=== PATIENT | female | born 1980 | race Caucasian/White ===

== ENCOUNTER → 2019-11-05 08:47 | Outpatient (BNVA) | payer OTHER, SELFPAY | PROVIDERS: Visit Provider Nurse Practitioner Women's Health | DX: Z01.89 Encounter for other specified special examinations (principal) | CPT/HCPCS: 84315 ==

== ENCOUNTER → 2019-11-29 13:03 | Outpatient (BNVA) | payer OTHER, SELFPAY | PROVIDERS: Visit Provider Obstetrics & Gynecology | DX: O09.521 Supervision of elderly multigravida, first trimester (principal) | CPT/HCPCS: 80053; 80307; 84315; 85027; 86592; 86762; 86803; 86850; 86900; 87340; 87806 ==

== ENCOUNTER → 2019-12-10 10:41 | Outpatient (BNVA) | payer OTHER, SELFPAY | PROVIDERS: Visit Provider Obstetrics & Gynecology Female Pelvic Medicine and Reconstructive Surgery | DX: Z34.90 Encounter for supervision of normal pregnancy, unspecified, unspecified trimester (principal); O09.892 Supervision of other high risk pregnancies, second trimester; O09.891 Supervision of other high risk pregnancies, first trimester; O09.521 Supervision of elderly multigravida, first trimester; O99.331 Smoking (tobacco) complicating pregnancy, first trimester; O34.531 Maternal care for retroversion of gravid uterus, first trimester | CPT/HCPCS: 84315; 87491; 87591 ==

== ENCOUNTER → 2020-02-11 12:52 | Outpatient (BNVA) | payer OTHER, SELFPAY | PROVIDERS: Visit Provider Obstetrics & Gynecology | DX: Z36.89 Encounter for other specified antenatal screening (principal) | CPT/HCPCS: 76805 ==

== ENCOUNTER → 2020-03-27 13:01 | Outpatient (BNVA) | payer OTHER, SELFPAY | PROVIDERS: Visit Provider Obstetrics & Gynecology | DX: R10.9 Unspecified abdominal pain (principal); R35.0 Frequency of micturition | CPT/HCPCS: 81000 ==

== ENCOUNTER → 2020-04-03 12:26 | Outpatient (BNVA) | payer OTHER, SELFPAY | PROVIDERS: Visit Provider Nurse Practitioner Women's Health | DX: O09.522 Supervision of elderly multigravida, second trimester (principal); Z3A.00 Weeks of gestation of pregnancy not specified | CPT/HCPCS: 82950; 84315; 85027 ==

== ENCOUNTER → 2020-05-29 08:25 | Outpatient (BNVA) | payer OTHER, SELFPAY | PROVIDERS: Visit Provider Obstetrics & Gynecology | DX: O09.523 Supervision of elderly multigravida, third trimester (principal) | CPT/HCPCS: 84315; 87081 ==

== ENCOUNTER 2020-06-06 07:15 | Outpatient (CLI) | payer OTHER, SELFPAY ==
[2020-06-06 07:47] VITALS: BP 111/64; PULSE 71
[2020-06-06 08:11] VITALS: BMI 23.8
[2020-06-06 08:38] VITALS: BP 98/59; PULSE 66
[2020-06-06 09:08] VITALS: BP 95/55; PULSE 69
[2020-06-06 09:38] VITALS: BP 95/53; PULSE 72
[2020-06-06 10:56] VITALS: BP 95/53; PULSE 72; RESP 16; TEMP 36.7
--- NOTE | 2020-06-06 12:26 | PM.ACPR ---
Procedure/Consent Procedure Narrative: NONSTRESS TEST: Place of test: [facility] [place] Indication: 39-year-old 4 para 3-0-0-3 at 37 weeks and 6 days Date and time of test: 06/06/2020, 8 AM Baseline: 135 Variability: Moderate Accelerations: Present Decelerations: None Tocometry: Irregular contractions INTERPRETATION: NST reactive, continue kick counts
== END 2020-06-06 10:03 | disposition home or self-care (01) ==
LOC: OPOB 07:23 → OBGYN 09:16
PROVIDERS: Visit Provider Obstetrics & Gynecology
DX: O26.899 Other specified pregnancy related conditions, unspecified trimester (principal); Z3A.00 Weeks of gestation of pregnancy not specified; R10.9 Unspecified abdominal pain
CPT/HCPCS: 12345; 59025; 99211

== ENCOUNTER 2020-06-06 22:20 | Inpatient (IN) | payer OTHER, SELFPAY ==
[2020-06-06] VITALS (10 sets, daily range): BP systolic 0–129; BP diastolic 0–73; PULSE 72–88; RESP 18; BMI 23.8
[2020-06-06] MEDS: lactated ringers 1,000 ML 999 ML IV (22:30)
[2020-06-06 23:25] LABS: Basophils # 0.1 10^3/uL (0.0-0.1); Basophils % 0.4 %; Eosinophils # 0.1 10^3/uL (0.0-0.8); Eosinophils % 0.6 %; Hematocrit 36.8 % (37.0-47.0); Hemoglobin 12.6 g/dL (11.5-15.3); Lymphocytes # 2.1 10^3/uL (0.8-4.8); Lymphocytes % 17.1 %; Mean Corpuscular HGB Conc 34.2 g/dL (30.0-36.0); Mean Corpuscular Hemoglobin 33.1 pg (28.0-34.0); Mean Corpuscular Volume 96.6 fL (81-99); Mean Platelet Volume 11.6 fL (7.4-10.4); Monocytes # 0.5 10^3/uL (0.2-0.9); Monocytes % 4.1 %; Neutrophils # 9.62 10^3/uL (1.8-7.7); Neutrophils % 77.4 %; Nucleated Red Blood Cells % 0 %; Platelet Count 245 10^3/cmm (130-400); Red Blood Count 3.81 10^6/uL (4.1-5.3); Red Cell Distribution Width 12.6 % (12.1-15.1); White Blood Count 12.4 10^3/uL (4.0-10.0)
[2020-06-06] MEDS: fentaNYL 50 mcg/mL INJ 2mL 25 MCG IVP (23:49)
[2020-06-06] MEDS: oxytocin 30 UNIT/500 ML BAG 600 UNIT IV (23:51)
--- NOTE | 2020-06-06 23:52 | PM.DELIVERY ---
Delivery Note: Date of delivery: June 06, 2020 - PRE-DELIVERY DIAGNOSIS: 39-year-old 4 para 3-0-0-3 at 37 weeks and 6 days gestation Active labor GBS negative Mild placental abruption Advanced maternal age Multiparity desiring sterilization Tobacco use in POST-DELIVERY DIAGNOSIS: Vaginal delivery on 06/06/2020 Placental abruption PROCEDURE: Vaginal delivery on 06/06/2020 ANESTHESIA: None DELIVERING PHYSICIAN: Talib uMrguia FACOG PRE-DELIVERY COURSE: Ms. Valdovinos is a 39-year-old 4 para 3-0-0-3 at 37 weeks and 6 days gestation who presented to labor and delivery with reports of vaginal bleeding and painful contractions. She had been seen early in the morning with reports of just contractions and at that time was noted to be 370 and -2 station. She was observed for a period of 3 hours and made no cervical change and was discharged home with a category 1 tracing. She states that after going home her contractions persisted and about 30 minutes prior to arrival she started having bright red bleeding that was staining her underwear and as a result she came in for evaluation. Upon arrival to labor and delivery at 10:10 PM on 06/06/2020 she was noted to be 7 cm, 90% and +1 station with intact membranes. She was noted to be bleeding vaginally and pad count was started. I was notified and presented 25 minutes later and on exam she was still 719 and +1 station with a category 1 tracing and contractions every 2 to 4 minutes. Based on the amount of bleeding I was suspicious for an abruption and discussed artificial rupture of membranes as a way to expedite delivery and she agreed. Artificial rupture of membranes was performed at 1049 with clear fluid without any difficulty. She grew uncomfortable after this and made rapid cervical change and was fully dilated at 11:17 PM and +2 station ready to push. DELIVERY NOTE: She was set up in lithotomy position and was pushing effectively. She was noted to be +3 station and continued pushing well. The head delivered in DAKOTA position, nuchal cord x1 was present and this was reduced overhead without any difficulty. The shoulders and rest of the body followed with her next push. The baby's mouth and nose were suctioned and the baby was placed on the mother's belly. Once cord pulsations stopped the cord was clamped and cut. The placenta delivered spontaneously intact with membranes immediately after delivery of baby and on inspection was noted to have areas of abruption on it. Blood gases were also sent. It was sent to pathology. The fundus was noted to be firm and well contracted. The vagina and cervix were inspected and no cervical or sulcal lacerations were noted. The perineum was intact. There was a small first-degree laceration on the right labia that was hemostatic and was not repaired. Baby girl, Piper born at 11:22 PM with 8/8, weighing 3045 g, 6 pounds 11 ounces, 19-1/2 inches long. Placenta was delivered immediately after baby intact with membranes. Cotyledons were intact , centrally inserted umbilical cord with 3 vessels noted. Area of abruption identified and it was sent to pathology Estimated blood loss 150 mL. About 50 mL of blood was lost during the labor. Complications-none, both baby and mother were left to recovery in a stable condition Coding Level of Care Code Acute Police Lieutenant for Jacquelin Aceves
[2020-06-07] VITALS (18 sets, daily range): BP systolic 0–124; BP diastolic 0–80; PULSE 60–133; RESP 15–18; TEMP 36.7–36.9; O2SAT 95–96
[2020-06-07] MEDS: lanolin oint 7 gm 1 APPLIC TOPICAL (01:12)
[2020-06-07] MEDS: acetaminophen 325 mg Tablet 650 MG PO ×2 (01:12→07:30)
[2020-06-07] MEDS: benzocaine-menthol 78 gm Canister 1 SPRAY TOPICAL (01:12)
--- NOTE | 2020-06-07 08:01 | PC.NURSE ---
0715 Pt fundus slightly to the right. Bleeding small. Pt voices needing up to bathroom. Pt getting up to bathroom.
[2020-06-07] MEDS: docusate sodium 100 mg Capsule PO (09:36)
[2020-06-07] MEDS: prenatal vitamin Capsule 1 CAP PO (09:36)
[2020-06-07] MEDS: ibuprofen 800 mg tablet PO ×3 (09:36→20:35)
--- NOTE | 2020-06-07 13:14 | PM.DCS ---
Discharge Providers Date of Admission: 06/06/20 22:20 Date of Discharge: June 07, 2020 Attending Provider at Admission: Talib Sánchez MD Attending Provider at Discharge: Talib Sánchez MD Reason for Visit Reason for Visit: contractions Hospital Course Discharge Summary: PRE-DELIVERY DIAGNOSIS: 39-year-old 4 para 3-0-0-3 at 37 weeks and 6 days gestation Active labor GBS negative Mild placental abruption Advanced maternal age Multiparity desiring sterilization Tobacco use in POST-DELIVERY DIAGNOSIS: Vaginal delivery on 06/06/2020 Placental abruption PROCEDURE: Vaginal delivery on 06/06/2020 ANESTHESIA: None DELIVERING PHYSICIAN: Talib Murguia FACOG PRE-DELIVERY COURSE: Ms. Valdovinos is a 39-year-old 4 para 3-0-0-3 at 37 weeks and 6 days gestation who presented to labor and delivery with reports of vaginal bleeding and painful contractions. She had been seen early in the morning with reports of just contractions and at that time was noted to be 370 and -2 station. She was observed for a period of 3 hours and made no cervical change and was discharged home with a category 1 tracing. She states that after going home her contractions persisted and about 30 minutes prior to arrival she started having bright red bleeding that was staining her underwear and as a result she came in for evaluation. Upon arrival to labor and delivery at 10:10 PM on 06/06/2020 she was noted to be 7 cm, 90% and +1 station with intact membranes. She was noted to be bleeding vaginally and pad count was started. I was notified and presented 25 minutes later and on exam she was still 719 and +1 station with a category 1 tracing and contractions every 2 to 4 minutes. Based on the amount of bleeding I was suspicious for an abruption and discussed artificial rupture of membranes as a way to expedite delivery and she agreed. Artificial rupture of membranes was performed at 1049 with clear fluid without any difficulty. She grew uncomfortable after this and made rapid cervical change and was fully dilated at 11:17 PM and +2 station ready to push. DELIVERY NOTE: She was set up in lithotomy position and was pushing effectively. She was noted to be +3 station and continued pushing well. The head delivered in DAKOTA position, nuchal cord x1 was present and this was reduced overhead without any difficulty. The shoulders and rest of the body followed with her next push. The baby's mouth and nose were suctioned and the baby was placed on the mother's belly. Once cord pulsations stopped the cord was clamped and cut. The placenta delivered spontaneously intact with membranes immediately after delivery of baby and on inspection was noted to have areas of abruption on it. Blood gases were also sent. It was sent to pathology. The fundus was noted to be firm and well contracted. The vagina and cervix were inspected and no cervical or sulcal lacerations were noted. The perineum was intact. There was a small first-degree laceration on the right labia that was hemostatic and was not repaired. Baby girl, Piper born at 11:22 PM with 8/8, weighing 3045 g, 6 pounds 11 ounces, 19-1/2 inches long. Placenta was delivered immediately after baby intact with membranes. Cotyledons were intact , centrally inserted umbilical cord with 3 vessels noted. Area of abruption identified and it was sent to pathology Estimated blood loss 150 mL. About 50 mL of blood was lost during the labor. Complications-none, both baby and mother were left to recovery in a stable condition HOSPITAL COURSE: She underwent an uncomplicated vaginal delivery on 06/06/2020. She did well on day 0 and was ambulating well, tolerating regular diet, voiding freely, passing flatus. She was breast-feeding without difficulty and bonding well with her daughter. Pain was well-controlled with by mouth pain medication. She denied nausea, vomiting, fever, chills, shortness of breath, leg pain. She had moderate vaginal bleeding. On day # 1 she continued to do well with stable vital signs and stable hemoglobin at 11.5 from predelivery hemoglobin of 12.6. She was discharged home on day 1 in a stable condition, as she desired early discharge. Warning signs for endometritis, mastitis, DVT/PE were reviewed with her. Post delivery activity restrictions were also reviewed with her at all her questions were answered to her satisfaction. Plans on having a tubal ligation for contraception. This was not done as we did not have COVID testing results back and she desired to just have it done as an interval procedure. EXAM AT DISCHARGE: Gen.: No acute distress Heart: S1-S2 heard, regular rate and rhythm Lungs: Clear to auscultation bilaterally Abdomen: Soft, fundus firm below umbilicus, Legs: No calf tenderness, no pedal edema. CONDITION AT DISCHARGE: Stable Discharge Data Data Completed and Pending: Pending at discharge Category Date Time Status Hemagram Timed Lab 06/07/20 11:50 Ordered PTC COVID [Pete virus Lab Test PTC ] Routine Lab 06/06/20 00:30 Received Pathology: Surgic al [PTH] Routine Pth 06/07/20 01:06 Ordered Labs from last 24 hours 06/06/20 06/06/20 22:30 00:30 WBC 12.4 H RBC 3.81 L Hgb 12.6 Hct 36.8 L MCV 96.6 MCH 33.1 MCHC 34.2 RDW 12.6 Plt Count 245 MPV 11.6 H Neut % (Auto) 77.4 Lymph % (Auto) 17.1 [place] % (Auto) 4.1 Eos % (Auto) 0.6 Baso % (Auto) 0.4 Neut # (Auto) 9.62 H Lymph # (Auto) 2.1 [place] # (Auto) 0.5 Eos # (Auto) 0.1 Baso # (Auto) 0.1 Nucleated RBC % (a uto) 0 Nucleated RBCs # 0.0 Nasal/Oral COVID-1 9 PCR Pending Vitals: Last Vital Signs Temp 98.1 F 06/07/20 09:38 Pulse 69 06/07/20 09:38 Resp 18 06/07/20 09:38 BP 100/64 06/07/20 09:38 Pulse Ox 95 06/07/20 09:38 Discharge Plan Discharge Patient Disposition: Home Condition: Stable Prescriptions: New ibuprofen 800 mg tablet 800 mg PO Q8H Qty: 30 RF: 0 docusate sodium 100 mg Capsule 100 mg PO BID PRN (Reason: constipation) Qty: 30 RF: 0 Continued prenat.vits,toy,fiw-lujz-ehhar Tablet 1 tab PO DAILY RF: 0 Discharge Orders: Discharge Order (Routine); Ordered 06/07/20 Ordered By: Talib Sánchez Referrals: Desean Franklin MD [Physician] - (5-week visit and tubal ligation scheduling Please Call [facility] to schedule your follow up appointments Monday morning.) Discharge Diet: Usual diet Patient Instructions: , Vitamins (By mouth), Your Baby (DC), Breast Care for the Breast Feeding Mother (DC), Vaginal Delivery (DC), OB Discharge Report, OB Food/Drug Interaction Guide, OB Proud Parent Packet Activity Restrictions/Additional Instructions: Pelvic rest for 6 weeks, no heavy lifting for 6 weeks Discharge Date/Time: 06/07/20 23:00 Discharge Attestations Time Spent in Discharge Care*: greater than 30 min Quality Metrics Clinical Quality Measures During this hospital stay, did patient experience: None Coding Level of Care Code Acute It Support Technician for Jacquelin Aceves
[2020-06-07 13:19] LABS: Hematocrit 33.7 % (37.0-47.0); Hemoglobin 11.5 g/dL (11.5-15.3); Mean Corpuscular HGB Conc 34.1 g/dL (30.0-36.0); Mean Corpuscular Hemoglobin 33.3 pg (28.0-34.0); Mean Corpuscular Volume 97.7 fL (81-99); Mean Platelet Volume 11.8 fL (7.4-10.4); Platelet Count 225 10^3/cmm (130-400); Red Blood Count 3.45 10^6/uL (4.1-5.3); Red Cell Distribution Width 12.7 % (12.1-15.1)
[2020-06-08 14:12] LABS: Coronavirus Lab Test PTC Negative
--- NOTE | 2020-06-08 15:15 | PC.RESP ---
Smoking Cessation information sent to patient.
== END 2020-06-07 23:00 | disposition home or self-care (01) | DRG 807 ==
LOC: OBGYN 22:29
PROVIDERS: Admitting Provider Obstetrics & Gynecology; Visit Provider Obstetrics & Gynecology
DX: O45.93 Premature separation of placenta, unspecified, third trimester (principal); Z37.0 Single live birth; O99.334 Smoking (tobacco) complicating childbirth; F17.210 Nicotine dependence, cigarettes, uncomplicated; O69.2XX0 Labor and delivery complicated by other cord entanglement, with compression, not applicable or unspecified; Z3A.37 37 weeks gestation of pregnancy; O75.89 Other specified complications of labor and delivery; L40.9 Psoriasis, unspecified
CPT/HCPCS: 12345; 36415; 59025; 59409; 85025; 85027; 87635; 88307; 96375; 99211; J3010

== ENCOUNTER → 2020-08-19 09:36 | Outpatient (BNVA) | payer OTHER, SELFPAY | PROVIDERS: Visit Provider Obstetrics & Gynecology | DX: Z30.09 Encounter for other general counseling and advice on contraception (principal); Z30.430 Encounter for insertion of intrauterine contraceptive device | CPT/HCPCS: 81025 ==

== ENCOUNTER 2021-04-20 12:21 | Emergency (ER) | payer OTHER, SELFPAY ==
[2021-04-20 12:48] VITALS: BP 99/65; PULSE 71; RESP 18; TEMP 36.5; O2SAT 96; BMI 18.6
--- NOTE | 2021-04-20 13:00 | ED_ITS ---
HPI - Back Pain/Injury General: Chief Complaint: Back Pain/Injury Stated Complaint: BACK PAIN Time Seen by Provider: 04/20/21 13:00 History of Present Illness: HPI Narrative: Patient slipped and fell landing on her buttocks yesterday.. Patient comes in today due to persistent discomfort to the coccyx. Patient denies . Patient appears well. MD elicited complaint: fall Review of Systems General: Reports: 10 or more systems reviewed and unremarkable except in HPI and below Musc: Reports: back pain PFS ED PFSH: Medical History (Updated 04/20/21 @ 15:07 by JULIO C Fabian) Blood type A+ Psoriasis Surgical History H/O dilation and curettage (~2002) Performed for problems with her periods, performed in [place], [place] Family History Father Hypertension Family/Other Diabetes Maternal aunt, maternal uncle Thyroid condition maternal aunt Mother No problems noted. Grandmother Heart disease maternal Diabetes Maternal Sister Hypertension Grandfather Diabetes Maternal Social History Smoking and tobacco status: current every day smoker cigarettes Packs smoked per day: 0.25 [ Other cigarette details: Started smoking as a teenager; most smoked 1 pack/day ] Alcohol intake: current Alcohol intake frequency: holidays/special occasions only Other details last substance use: Denies drug use Physical Exam Const: COMMON NORMALS: no acute distress and patient oriented x3 GENERAL APPEARANCE: cooperative HENMT: COMMON NORMALS: normocephalic and Normal external nose present HEAD & SCALP: normal to inspection and normocephalic NOSE: Normal external nose present MOUTH: Normal oral and palatal mucosa present Eye: GENERAL EYE: appearance normal, both eyes and all related structures Neck/C-Spine: COMMON NORMALS: full ROM Chest: COMMONS NORMALS: normal inspection of the chest Resp: COMMON NORMALS: normal respiratory effort EFFORT & INSPECTION: Yes able to speak in complete sentences Cardio: COMMON NORMALS: regular rate and regular rhythm RATE: regular rate RHYTHM: regular rhythm GI: COMMON NORMALS: non-tender Back/Pelvis: COMMON NORMALS: thoracic and lumbar spine normal to inspection COCCYX: Coccyx tenderness present Extremity: COMMON NORMALS: normal to inspection Neuro: COMMON NORMALS: patient oriented x3 and moves all extremities Psych: COMMON NORMALS: mental status grossly normal and cooperative Skin: COMMON NORMALS: no rashes or lesions noted GENERAL SKIN EXAM: no rashes or lesions noted Course Vital Signs: Vital signs: Vital Signs Temperature 97.7 F 04/20/21 12:48 Pulse Rate 71 04/20/21 12:48 Respiratory Rate 18 04/20/21 12:48 Blood Pressure 99/65 04/20/21 12:48 Pulse Oximetry 96 04/20/21 12:48 MDM - Back Pain/Injury MDM Narrative: Medical decision making narrative: On exam patient has low back tenderness on palpation. Patient has tailbone tenderness. No obvious abnormality is noted. Respirations are even lungs are clear to auscultation. Skin is warm and dry. Differential diagnosis includes but not limited to fracture, contusion, sprain. X-ray shows some abnormality to the sacrum that suggests a nondisplaced fracture. X-ray lumbar spine was unremarkable. Reviewed exam with patient with recommendations for treatment and follow-up. Patient reported understanding of care plan and need for follow-up or return to the ER. Discharge Plan Discharge Patient Disposition: Home Clinical Impression: Closed sacral fracture Qualifiers: Encounter type: initial encounter Zone of sacrum fracture: unspecified portion of sacrum Qualified Code(s): S32.10XA - Unspecified fracture of sacrum, initial encounter for closed fracture Condition: Stable Prescriptions: No Action Mirena 20 mcg/24 hours (6 yrs) 52 mg intrauterine device intrauterine RF: 0 prenat.vits,toy,oaz-[id number]-rlswy Tablet 1 tab PO DAILY RF: 0 fenugreek seed extract 500 mg capsule See Rx Instructions PO DAILY RF: 0 azithromycin 250 mg tablet See Rx Instructions PO .COMPLEX 5 Days Qty: 6 RF: 0 Discharge Orders: Discharge ED (Routine); Ordered 04/20/21 Ordered By: Parker Enamorado Referrals: Peggy Can FNP-C [Primary Care Provider] - Discharge Diet: Usual diet Discharge Activity: Increase activity as tolerated Patient Instructions: Sacral Fracture (ED), Opioid Safety Activity Restrictions/Additional Instructions: Activity as tolerated. Use acetaminophen and ibuprofen for pain. Use a soft cushion to sit on. Use ice or heat for further comfort. Follow-up with primary care as needed. Return to the ER for new concerns. Coding Level of Care Code ED Chief Passenger Ship Steward/Stewardess for Chg Fwd Exam Comprehensive
--- NOTE | 2021-04-20 13:01 | XRR_ITS ---
PROCEDURE INFORMATION: Exam: XR Lumbosacral Spine Exam date and time: 04/20/2021 1:01 PM Age: 40 years old Clinical indication: Injury or trauma; Fall; Blunt trauma (contusions or hematomas) TECHNIQUE: Imaging protocol: XR of the lumbosacral spine. Views: 2 or 3 views. COMPARISON: CR XR coccyx 2V [id number] 04/20/2021 1:24 PM FINDINGS: There are 5 lumbar type vertebral bodies. There are grade 1 retrolistheses L1, L2, L3 and L4. Mild degenerative disc disease is noted. Gioh-sq-vscafthe facet joint degeneration is noted in the lower lumbar spine. Buckling involving the distal sacrum suspicious for subtle fracture. The sacroiliac joints are grossly symmetric. A possible fracture involving the right sacral saba identified on sacral radiographs is not definitively seen on the current radiographs of the lumbar spine. XR/XR lumbar spine 2-3V* [id number] IMPRESSION: 1. No acute fracture is seen in the lumbar spine. 2. A possible fracture involving the right sacral saba identified on sacral radiographs is not definitively seen on the current radiographs of the lumbar spine. 3. Buckling involving the distal sacrum suspicious for subtle fracture.
--- NOTE | 2021-04-20 13:01 | XRR_ITS ---
PROCEDURE INFORMATION: Exam: XR Sacrum and Coccyx, 2 or More Views Exam date and time: 04/20/2021 1:01 PM Age: 40 years old Clinical indication: Fall of lung trauma. TECHNIQUE: Imaging protocol: XR of the sacrum and coccyx, 2 or more views. COMPARISON: OB follow up [facility] 06/05/2020 1:51 PM FINDINGS: The sacroiliac joints are grossly symmetric. Possible nondisplaced fracture involving the right sacral ala. There is buckling involving the distal sacrum suspicious for subtle fracture. Bowel gas and stool partially obscure the sacrum. XR/XR coccyx 2V [id number] IMPRESSION: 1. Possible nondisplaced fracture involving the right sacral ala. 2. Buckling involving the distal sacrum suspicious for subtle fracture. 3. Recommend CT to better characterize.
--- NOTE | 2021-04-20 14:37 | PC.NURSE ---
Patient up to restroom and back without incident, provided drink and asked if she needed anything for pain. She refuses any pain medication at this time stating I'll be ok . Pillow provided for comfort.
[2021-04-20 15:22] VITALS: BP 107/72; PULSE 72; RESP 16; TEMP 36.4
== END 2021-04-20 15:24 | disposition home or self-care (01) ==
PROVIDERS: Emergency Provider Nurse Practitioner Family; PCP Nurse Practitioner Family
DX: S32.10XA Unspecified fracture of sacrum, initial encounter for closed fracture (principal); F17.210 Nicotine dependence, cigarettes, uncomplicated; W01.0XXA Fall on same level from slipping, tripping and stumbling without subsequent striking against object, initial encounter
CPT/HCPCS: 72100; 72220; 99282